=== PATIENT | male | born 1960 | race Caucasian/White ===

== ENCOUNTER 2019-02-21 07:27 | Emergency (ER) | payer SELFPAY ==
[~2019-02-21] VITALS: Ht 175.3 cm; Wt 83.9 kg
[~2019-02-21 07:27] MED LIST: ACEASPCAF PO; CIPR500 PO; HYDACE5 PO; IBUP400 PO; OXYACE5T PO; PENVK500 PO; RIZATRIPTAN SL; SULTRIDS PO
[2019-02-21] MEDS ORDERED: Amoxicillin500 MG PO (08:46)
[2019-02-21] MEDS ORDERED: TRAM50 PO (08:46)
== END 2019-02-21 08:59 | disposition home or self-care (01) ==
LOC: ER 07:27
DX: K02.9 Dental caries, unspecified (principal); K03.81 Cracked tooth; K04.7 Periapical abscess without sinus; Z79.899 Other long term (current) drug therapy; Z79.891 Long term (current) use of opiate analgesic
CPT/HCPCS: 96372; 99283-25; J1885